=== PATIENT | female | born 1935 | race Caucasian/White ===

== ENCOUNTER 2016-11-05 03:54 | Inpatient (IN) ==
[2016-11-05] MEDS ORDERED: Acetaminophen 325 MG TABLET PO PRN (06:17)
[2016-11-05] MEDS ORDERED: Naloxone 0.4 MG/ML INJ IVP PRN (06:17)
[2016-11-05] MEDS ORDERED: 0.9 % Sodium Chloride 1,000 ML IVC SCH (06:30)
--- NOTE | 2016-11-05 06:32 | Internal Med History&Physical ---
Date of Encounter: 11/05/16 Time of Encounter: 06:23 Assessment and Plan (1) Sepsis Current visit: Yes Status: Acute Source is unknown. Influenza screen is negative. Chest x-ray reported negative for consolidation. UA, rapid strep test requested. Will obtain CT chest / abdomen, to look for source of sepsis. Pt was given IV fluid bolus and given azithromycin and ceftriazone in the ER - will broaden the antibiotic cover. Titrate the antibiotics based on the labs / imaging. Qualifiers: Sepsis type: sepsis due to unspecified organism Qualified Code(s): A41.9 - Sepsis, unspecified organism (2) Atrial fibrillation with RVR Current visit: Yes Status: Acute Possibly secondary to sepsis. She was treated with intravenous diltiazem and digoxin. will transition to oral medications. (3) CVA, old, dysphagia Current visit: Yes Status: Acute Continue modified diet (4) Chronic anticoagulation Current visit: Yes Status: Acute INR is subtherapeutic. Warfarin dosing per pharmacy (5) Fever Current visit: Yes Status: Acute Possibly due to infection. Influenza screen is negative. Chest x-ray reported negative for consolidation. UA, rapid strep test requested. Will obtain CT chest / abdomen, to look for source of infection. Qualifiers: Fever type: unspecified Qualified Code(s): R50.9 - Fever, unspecified Internal Medicine - H&P: HPI Chief complaint: Fever; Admitted From: Emergency Dept Plans for Post Hospital Care: Home History of present illness: Ms. Pinzon is a 81 year old female with h/o CVA with left sided hemineglect, dysphagia; atrial fibrillation on anticoagulation with Warfarin. She presented to the ER at [facility], with 2 day history of congestion and cough, shortness of breath and Fever at home 102 degrees. She reports some cough, but no significant expectoration. She denies facial / sinus pain, exposure to sick contacts, chest pain, abdominal pain, dysphagia, hematuria, nausea, vomiting. No vomiting or diarrhea. No chest pain. While in the emergency department, she was noted to be in atrial flutter/ fibrillation with RVR and heart rate of 150s. Her serum lactate was 3. She was given IV fluids, started on diltiazem bolus and infusion. She continued to be tachycardic but was hypotensive - hence she was given IV digoxin. Her heart rate improved. Influenza screen was negative. Chest x-ray reported no acute consolidation. He had physician emperically treated her with ceftriaxone and azithromycin. She is admitted to the hospitalist service for further w/u and management. Past Med Surg Social Fam HX - Past Medical History Medical history: atrial fibrillation, cancer, hyperlipidemia, hypertension, kidney stones Psychiatric history: no psych history - Past Surgical History Surgical History: breast surgery, cancer surgery, colectomy, orthopedic, other, ureteral stent - Social History Smoking Status: Former smoker Smokeless Tobacco Status: No Alcohol use: none Drug use: none - Family History Father Living Status: Cause of : Heart attack Hx Family Cardiac Disorders: Yes Mother Living Status: Cause of : Lung cancer Hx Family Respiratory Disorders: Yes Internal Medicine - H&P: Meds Aspirin 81 mg PO DAILY 03/31/15 [History] Diltiazem HCl [Diltiazem 24Hr Cd] 240 mg PO DAILY 03/31/15 [History] Metoprolol [Lopressor] 50 mg PO BID 03/31/15 [History] Multivitamin [Zoo Chews] 1 each PO DAILY 03/31/15 [History] Atorvastatin Calcium [Lipitor] 10 mg PO DAILY 11/05/16 [History] Coumadin 3 mg PO QMWF 11/05/16 [History] Ondansetron HCl [Zofran] 4 mg PO Q6HR 11/05/16 [History] Potassium Chloride [Klor-Con 10] 40 meq PO 11/05/16 [History] Tramadol HCl [Ultram] 50 mg PO QID PRN 11/05/16 [History] Warfarin [Coumadin] 2 mg PO QTUTHSA 11/05/16 [History] Warfarin [Coumadin] 2 mg PO QWEEK 11/05/16 [History] Allergies No Known Allergies Allergy (Verified 11/05/16 02:26) All Systems PM: A 10-system review of systems was performed and is negative for pertinent findings except as documented above in the HPI. - Constitutional Vitals: Temp Pulse Resp BP Pulse Ox 97.8 F 72 18 108/72 96 11/05/16 05:29 11/05/16 05:29 11/05/16 05:29 11/05/16 05:29 11/05/16 05:29 Exam: General: Not in acute distress at the time of my evaluation HEENT: Oral mucosa is moist. No conjunctival palor or scleral icterus Neck: No obvious neck swellings Lungs: Clear to auscultation Cardiac: irregular rhythm. No significant murmurs Abdomen: Soft, non tender. Bowel sounds present Genitourinary: No mir catheter Neurological: Alert and able to converse. Able to move extremities. Psych: Not aggressive or agitated Extremities: no significant leg edema Skin: No generalized rash Internal Med - H&P Results - Labs CBC & Chem 7: 11/05/16 06:35 11/05/16 06:35 - EKG Data -: EKG Interpreted by Myself - EKG Data EKG comments: Atrial flutter / fibrillation with RVR, heart rate of 157; infero-lateral ST depression: 11/05/16 06:32 11/05/16 08:07 - VTE Reasons for not Prescribing Prophylaxis: Not indicated-Anticoagulated or INR therapeutic
[2016-11-05 06:51] LABS: Basophils % 0.1 %; Hematocrit 45.7 % (35.3-44.9); Immature Granulocytes % 0.7 % (0-4); Lymphocytes # 0.5 K/mcL (0.6-4.6); Lymphocytes % 2.5 %; Mean Corpuscular HGB Conc 30.6 g/dL (31.6-35.5); Mean Corpuscular Hemoglobin 26.6 pg (28.0-33.3); Mean Corpuscular Volume 86.9 fL (83.0-100.0); Mean Platelet Volume 12.3 fL (9.4-12.4); Monocytes # 0.8 K/mcL (0.0-1.3); Monocytes % 3.9 %; Neutrophils # 18.8 K/mcL (1.6-8.9); Platelet Count 335 K/mcL (140-400); Red Blood Count 5.26 M/mcL (3.82-4.97); Segmented Neutrophils % 92.8 %
[2016-11-05 06:56] LABS: INR 1.5; Prothrombin Time 16.9 Seconds (9.4-12.1)
[2016-11-05 07:03] LABS: BUN/Creatinine Ratio 14 (6-26); Blood Urea Nitrogen 11 mg/dL (7-20); Calcium 8.7 mg/dL (8.6-10.8); Carbon Dioxide 23 mEq/L (19-29); Chloride 107 mEq/L (98-109); Glucose 170 mg/dL (70-99); Osmolality,Calculated 295 (280-300); Potassium 3.8 mEq/L (3.5-4.5); Sodium 141 mEq/L (136-145); eGFR For African Americans > 60 (> 60); eGFR For Non-African Americans > 60 (> 60)
[2016-11-05] MEDS ORDERED: traMADol 50 MG TABLET PO PRN (07:58)
[2016-11-05] MEDS ORDERED: Magnesium Sulfate 2 GM in D5% in Water 100 ML IVPB ONE (08:15)
[2016-11-05] MEDS: Multivit/Ca/Min/Fe/FA 1 TAB TABLET PO SCH (09:59)
[2016-11-05] MEDS: Aspirin 81 MG TAB.CHEW PO SCH (09:59)
[2016-11-05] MEDS: Diltiazem CD (24hr) 240 MG CAPSULE PO SCH (10:00)
[2016-11-05 15:11] LABS: Adenovirus Not Detected (Not Detect); Bordetella Pertussis Not Detected (Not Detect); Chlamydophila pneumoniae Not Detected (Not Detect); Coronavirus 229E ***DETECTED*** (Not Detect); Coronavirus HKU1 Not Detected (Not Detect); Coronavirus NL63 Not Detected (Not Detect); Coronavirus OC43 Not Detected (Not Detect); Human Metapneumovirus Not Detected (Not Detect); Human Rhinovirus/Enterovirus Not Detected (Not Detect); Influenza A Subtype 2009 H1 Not Detected (Not Detect); Influenza A Untypeable Not Detected (Not Detect); Influenza B Not Detected (Not Detect); Mycoplasma pneumoniae Not Detected (Not Detect); Parainfluenza Virus 1 Not Detected (Not Detect); Parainfluenza Virus 2 Not Detected (Not Detect); Parainfluenza Virus 3 Not Detected (Not Detect); Parainfluenza Virus 4 Not Detected (Not Detect); Respiratory Syncytial Virus Not Detected (Not Detect)
[2016-11-05] MEDS ORDERED: Azithromycin 500 MG in D5% in Water 250 ML IVPB SCH (17:01)
--- NOTE | 2016-11-05 17:28 | Event Note ---
Date of Encounter: 11/05/16 Time of Encounter: 17:25 Pt admitted earlier this AM with severe sepsis. CT chest shows RML/RUL pneumonia. Pt with hx of dysphagia from prior CVA. Resp panel positive for Coronavirus Plan Abx to cover aspiration Supportive care for virus Droplet isolation for virus.
[2016-11-05] MEDS: Azithromycin 500 MG in D5% in Water 250 ML IVPB SCH (17:53)
[2016-11-05] MEDS ORDERED: *HR* Warfarin 2 MG TABLET PO SCH (18:00)
[2016-11-05] MEDS ORDERED: Warfarin perPT PO PRN (18:00)
[2016-11-05 20:03] LABS: Bilirubin,Urine Negative (Negative); Blood,Urine Trace-lysed (Negative); Clarity,Urine Clear (Clear); Color,Urine Yellow (Yellow); Glucose,Urine (UA) 500 mg/dL (Normal); Ketones,Urine Trace mg/dL (Negative); Leukocyte Esterase,Urine Negative (Negative); Nitrite,Urine Negative (Negative); PH,Urine 5.5 pH Units (5.0-8.0); Protein,Urine 30 mg/dL (Neg-Trace); Specific Gravity,Urine >= 1.030 (1.010-1.025); Urobilinogen,Urine Normal (Normal)
[2016-11-05 20:16] LABS: Bacteria,Urine Few per hpf (None-Few)
[2016-11-05 20:56] LABS: Hematocrit 36.7 % (35.3-44.9); Mean Corpuscular HGB Conc 31.1 g/dL (31.6-35.5); Mean Corpuscular Hemoglobin 26.8 pg (28.0-33.3); Mean Platelet Volume 12.8 fL (9.4-12.4); Red Blood Count 4.25 M/mcL (3.82-4.97); Red Cell Distribution Width 17.1 % (11.5-14.5)
[2016-11-05 20:59] LABS: Hemoglobin 11.4 g/dL (11.5-15.4); Mean Corpuscular Volume 86.4 fL (83.0-100.0)
[2016-11-05 21:33] LABS: BUN/Creatinine Ratio 16 (6-26); Blood Urea Nitrogen 13 mg/dL (7-20); Calcium 8.4 mg/dL (8.6-10.8); Carbon Dioxide 21 mEq/L (19-29); Chloride 112 mEq/L (98-109); Glucose 182 mg/dL (70-99); Osmolality,Calculated 299 (280-300); Potassium 3.4 mEq/L (3.5-4.5); Sodium 142 mEq/L (136-145); eGFR For African Americans > 60 (> 60); eGFR For Non-African Americans > 60 (> 60)
[2016-11-06] MEDS ORDERED: Piperacillin/Tazobactam 3.375 GM in D5% in Water (Mini-Bag+) 100 ML IVPB SCH
[2016-11-06 01:42] LABS: Acinetobacter baumannii by PCR Not Detected (Not Detect); Candida albicans by PCR Not Detected (Not Detect); Candida glabrata by PCR Not Detected (Not Detect); Candida krusei by PCR Not Detected (Not Detect); Candida parapsilosis by PCR Not Detected (Not Detect); Candida tropicalis by PCR Not Detected (Not Detect); Enterococcus by PCR Not Detected (Not Detect); Escherichia coli by PCR Not Detected (Not Detect); Klebsiella oxytoca by PCR Not Detected (Not Detect); Klebsiella pneumoniae by PCR Not Detected (Not Detect); Pseudomonas aeruginosa by PCR Not Detected (Not Detect); Serratia marcescens by PCR Not Detected (Not Detect); Staphylococcus aureus by PCR Not Detected (Not Detect); Streptococcus agalactiae(B)PCR Not Detected (Not Detect); Streptococcus by PCR Not Detected (Not Detect); Streptococcus pneumoniae PCR Not Detected (Not Detect); Streptococcus pyogenes (A) PCR Not Detected (Not Detect); blaKPC Carbapenem-Resist Gene Not Detected (Not Detect); mecA Methicillin-Resist Gene Not Detected (Not Detect); vanA/B Vancomycin-Resist Genes Not Detected (Not Detect)
[2016-11-06 05:31] LABS: INR 2.1; Prothrombin Time 23.7 Seconds (9.4-12.1)
[2016-11-06 05:44] LABS: BUN/Creatinine Ratio 18 (6-26); Blood Urea Nitrogen 12 mg/dL (7-20); Calcium 8.7 mg/dL (8.6-10.8); Carbon Dioxide 18 mEq/L (19-29); Chloride 114 mEq/L (98-109); Glucose 137 mg/dL (70-99); Magnesium 1.6 mg/dL (1.6-2.6); Osmolality,Calculated 296 (280-300); Potassium 3.7 mEq/L (3.5-4.5); Sodium 142 mEq/L (136-145); eGFR For African Americans > 60 (> 60); eGFR For Non-African Americans > 60 (> 60)
[2016-11-06 06:30] LABS: Basophils % 0.1 %; Hematocrit 36.8 % (35.3-44.9); Hemoglobin 11.5 g/dL (11.5-15.4); Immature Granulocytes % 0.6 % (0-4); Immature Platelets 11.1 % (1.1-6.1); Lymphocytes % 4.5 %; Mean Corpuscular HGB Conc 31.3 g/dL (31.6-35.5); Mean Corpuscular Hemoglobin 27.4 pg (28.0-33.3); Mean Corpuscular Volume 87.6 fL (83.0-100.0); Mean Platelet Volume 12.6 fL (9.4-12.4); Monocytes # 1.3 K/mcL (0.0-1.3); Monocytes % 5.7 %; Neutrophils # 19.6 K/mcL (1.6-8.9); Platelet Count 268 K/mcL (140-400); Red Cell Distribution Width 17.2 % (11.5-14.5); Segmented Neutrophils % 89.1 %
[2016-11-06] MEDS: Ampicillin/Sulbactam 3,000 MG in 0.9 % Sodium Chloride Mini Bag 100 ML IVPB SCH ×3 (09:39→21:58)
[2016-11-06] MEDS: Aspirin 81 MG TAB.CHEW PO SCH (09:39)
[2016-11-06] MEDS: Diltiazem CD (24hr) 240 MG CAPSULE PO SCH ×2 (09:39→17:45)
[2016-11-06] MEDS: Multivit/Ca/Min/Fe/FA 1 TAB TABLET PO SCH (09:39)
--- NOTE | 2016-11-06 11:44 | Internal Med Progress Note ---
Date of Encounter: 11/06/16 Time of Encounter: 08:30 - Assessment and plan (1) Sepsis Current Visit: Yes Status: Acute Assessment and plan: Blood cx positive for H flu. Switched abx from Zosyn to Unasyn today. Continue supportive care at this time. Recheck lactate today (was still 3.4). Qualifiers: Sepsis type: Haemophilus influenzae Qualified Code(s): A41.3 - Sepsis due to Hemophilus influenzae (2) Pneumonia Current Visit: Yes Status: Acute Assessment and plan: Blood cx positive for H. influenza. Has infiltrate in RML, lower part of RUL. Sputum cx if able. Abx changed to Unasyn and azithromycin. Qualifiers: Pneumonia type: due to Haemophilus influenzae Laterality: right Lung location: middle lobe of lung Qualified Code(s): J14 - Pneumonia due to Hemophilus influenzae (3) Atrial fibrillation Current Visit: Yes Status: Acute Assessment and plan: Rate control. Continue anticoagulation. Qualifiers: Atrial fibrillation type: chronic Qualified Code(s): I48.2 - Chronic atrial fibrillation (4) Hemiparesis and other late effects of cerebrovascular accident Current Visit: Yes Status: Chronic Assessment and plan: Pt has L neglect from prior CVA. (5) Dysphagia as late effect of cerebrovascular accident (CVA) Current Visit: Yes Status: Chronic Assessment and plan: Diet adjustment. (6) Coronavirus infection Current Visit: Yes Status: Acute Assessment and plan: Positive respiratory as well. (7) Chronic anticoagulation Current Visit: Yes Status: Chronic Assessment and plan: Warfarin by pharmacy. - Subjective Interval history: Ms. Pinzon is currently admitted for acute hypoxic resp failure due to pneumonia and viral respiratory infection. She is high risk due to potential for worsening respiratory status. Ms. Pinzon is coughing quite a bit. She says she can't get secretions up. No further fever or chills. Remains on oxygen. No GI symptoms. Heart rate is up and down. Caregiver at bedside and said cough started in morning last Monday. - Constitutional Vitals: Temp Pulse Resp BP Pulse Ox 97.7 F 61 16 146/88 92 11/06/16 06:49 11/06/16 06:49 11/06/16 06:49 11/06/16 06:49 11/06/16 06:49 General appearance: Present: cachectic, pleasant, answers questions appropriately - Head Head exam: Present: normocephalic - Eye Eye exam: Present: conjuntiva pink - ENT ENT exam: Present: mucous membranes dry - Respiratory Respiratory exam: Present: rhonchi (Diffuse end exp wheeze and rhonchi heard. Decreased sounds R side.), wheezes - Cardiovascular Cardiovascular exam: Present: irregular rhythm. Absent: tachycardia - GI/Abdominal GI/Abdominal exam: Present: soft. Absent: mass, tenderness - Extremities Exam Extremities exam: Present: warm. Absent: pedal edema, tenderness - Neurological Exam Neurological exam: Present: alert, motor sensory deficit (Apparently at baseline neuro status.) - Psychiatric Psychiatric exam: Present: normal affect - Skin Skin exam: Present: warm. Absent: rash Internal Medicine: Result - Labs CBC & Chem 7: 11/06/16 06:22 11/06/16 05:04 Labs: Short CBC 11/05/16 11/06/16 Range/Units 20:37 06:22 WBC 21.0 H 22.0 H (4.3-11.1) K/mcL Hgb 11.4 L D 11.5 (11.5-15.4) g/dL Hct 36.7 36.8 (35.3-44.9) % Plt Count 276 268 (140-400) K/mcL Neutrophils # 19.6 H (1.6-8.9) K/mcL BMP 11/05/16 11/06/16 20:37 05:04 Sodium 142 142 Potassium 3.4 L 3.7 Chloride 112 H 114 H Carbon Dioxide 21 18 L BUN 13 12 Creatinine 0.83 0.65 Glucose 182 H 137 H Calcium 8.4 L 8.7 Urine 11/05/16 Range/Units 19:55 Urine Color Yellow (Yellow) Urine Clarity Clear (Clear) Urine pH 5.5 (5.0-8.0) pH Units Ur Specific [place] >= 1.030 H (1.010-1.025) Urine Protein 30 H (Neg-Trace) mg/dL Urine Glucose (UA) 500 H (Normal) mg/dL - ABG Interpretation ABG results: PT/INR, D-dimer PT 23.7 Seconds (9.4-12.1) H 11/06/16 05:04 - VTE Reasons for not Prescribing Prophylaxis: Not indicated-Anticoagulated or INR therapeutic Consult Discharge Plan - Plan Referrals: Patrice Soliz MD [Primary Care Provider] -
[2016-11-06] MEDS ORDERED: 0.9 % Sodium Chloride 1,000 ML IVC SCH (12:08)
[2016-11-06] MEDS: Azithromycin 500 MG in D5% in Water 250 ML IVPB SCH (17:28)
[2016-11-06] MEDS ORDERED: *HR* Warfarin 1 MG TABLET PO SCH (18:00)
[2016-11-07] MEDS: Ipratropium/Albuterol Neb 3 ML IH PRN (01:32)
[2016-11-07] MEDS ORDERED: *HR* Metoprolol 5 MG/5 ML VIAL IVP ONE ×2 (01:56→02:06)
[2016-11-07 02:34] LABS: ABG Base Excess -2.2 mEq/L (-2.0 to 3.0); ABG HCO3 25.7 mEQ/L (21-27); ABG Oxygen Saturation 96 % (95-98); ABG PCO2 56 mmHg (35-45); ABG PH 7.27 pH Units (7.32-7.45); ABG PO2 89 mmHg (85-104); ABG TCO2 27.4 mEq/L (20-26); Blood Gas FiO2 50 %
[2016-11-07] MEDS: Ampicillin/Sulbactam 3,000 MG in 0.9 % Sodium Chloride Mini Bag 100 ML IVPB SCH (02:35)
[2016-11-07 04:02] LABS: INR 1.9
[2016-11-07] MEDS: Levalbuterol Neb 1.25 MG/3 ML IH SCH ×4 (04:09→21:01)
[2016-11-07 04:25] LABS: Basophils % 0.2 %; Hematocrit 40.2 % (35.3-44.9); Hemoglobin 12.7 g/dL (11.5-15.4); Immature Granulocytes % 1.4 % (0-4); Immature Platelets 12.2 % (1.1-6.1); Lymphocytes # 0.4 K/mcL (0.6-4.6); Lymphocytes % 1.9 %; Mean Corpuscular HGB Conc 31.6 g/dL (31.6-35.5); Mean Corpuscular Hemoglobin 27.6 pg (28.0-33.3); Mean Corpuscular Volume 87.4 fL (83.0-100.0); Mean Platelet Volume 13.7 fL (9.4-12.4); Monocytes # 2.3 K/mcL (0.0-1.3); Monocytes % 9.7 %; Neutrophils # 20.3 K/mcL (1.6-8.9); Platelet Count 294 K/mcL (140-400); Red Cell Distribution Width 17.4 % (11.5-14.5); Segmented Neutrophils % 86.8 %
[2016-11-07 04:30] LABS: Alanine Aminotransferase 27 Units/L (0-55); Albumin 2.6 g/dL (3.5-5.0); Albumin/Globulin Ratio 0.7 (1.1-2.2); Alkaline Phosphatase 114 Units/L (38-126); Aspartate Amino Transferase 16 Units/L (5-34); BUN/Creatinine Ratio 15 (6-26); Bilirubin,Total 0.5 mg/dL (0.2-1.2); Blood Urea Nitrogen 11 mg/dL (7-20); C-Reactive Protein 85 mg/L (Less than 5); Calcium 8.8 mg/dL (8.6-10.8); Carbon Dioxide 22 mEq/L (19-29); Chloride 113 mEq/L (98-109); Globulin 3.9 g/dL (2.4-3.5); Glucose 121 mg/dL (70-99); Magnesium 1.6 mg/dL (1.6-2.6); Osmolality,Calculated 303 (280-300); Potassium 3.5 mEq/L (3.5-4.5); Sodium 146 mEq/L (136-145); Total Protein 6.5 g/dL (6.0-8.3); eGFR For African Americans > 60 (> 60); eGFR For Non-African Americans > 60 (> 60)
[2016-11-07] MEDS ORDERED: Vancomycin 750 MG in D5% in Water 250 ML IVPB SCH (04:36)
--- NOTE | 2016-11-07 04:40 | Event Note ---
Date of Encounter: 11/07/16 Time of Encounter: 02:00 I was paged by nurse Nina at 0116 for patient having labored breathing with expiratory wheezes and O2 sat drop despite of increase of oxygen. VS: T97.5, HR 91, BP 169/88, RR 36 and O2 sat 88% on 5L. Duoneb was ordered and given to patient. At 0147, I was paged again by nurse Nina again for A-fib with HR in the 150-160s, RR 32, O2 sat 93% on 8L. Upon my exam, patient has significant labored breathing using her abdominal muscles. Lung auscultation revealed diminished breath sounds. Heart sounds tachycardia with irregular rhythm. Bedside monitor showed A-fib RVR with rate of 150s. BiPAP and ABG were ordered for her significant respiratory distress and bronchodilator was switched to Xopenex. One dose of Lopressor 5 mg IV push was given. Per nurse, patient didn' t get her home dose Cardizem CD earlier due to swallow difficulty. According to patient helper at bedside, patient is actually breaking the capsule of Cardizem CD at home so she can take it orally. Patient still had persistent A-fib at rate ranging 120s - 140s so eventually Cardizem was started. Portable CXR stat was obtained and showed increased right lower lobe consolidation with persistent right upper lobe consolidation. Case was discussed with Dr. Flood. Given patient's worsening leukocytosis despite of antibiotics, we feel it's more likely pneumonia not responding to current antibiotic regimen rather than new aspiration pneumonia. Antibiotics are changed to IV vancomycin and Zosyn. Speech therapy is also consulted for patient's dysphagia problem.
[2016-11-07] MEDS ORDERED: Vancomycin 750 MG in D5% in Water 250 ML IVPB ONE (05:00)
[2016-11-07] MEDS: Piperacillin/Tazobactam 3.375 GM in D5% in Water (Mini-Bag+) 100 ML IVPB SCH ×2 (06:19→18:58)
[2016-11-07] MEDS: Multivit/Ca/Min/Fe/FA 1 TAB TABLET PO SCH (10:02)
[2016-11-07] MEDS: dilTIAZem HCl 60 MG TABLET PO SCH ×4 (10:03→21:40)
[2016-11-07] MEDS: Aspirin 81 MG TAB.CHEW PO SCH (10:04)
[2016-11-07] MEDS ORDERED: GuaiFENesin Liq 200 MG/10 ML UDC PO PRN (13:30)
[2016-11-07] MEDS ORDERED: traMADol 50 MG TABLET PO PRN (13:31)
[2016-11-07] MEDS ORDERED: *HR* Warfarin 3 MG TABLET PO SCH (18:00)
[2016-11-07] MEDS ORDERED: *HR* Warfarin 3 MG TABLET PO ONE (18:00)
--- NOTE | 2016-11-07 18:31 | Internal Med Progress Note ---
Date of Encounter: 11/07/16 Time of Encounter: 16:30 - Assessment and plan (1) Sepsis Current Visit: Yes Status: Acute Assessment and plan: On Zosyn at this time. Still with significant coughing. Sensitivity of blood cx not back yet. Will repeat blood cx in AM. Qualifiers: Sepsis type: Haemophilus influenzae Qualified Code(s): A41.3 - Sepsis due to Hemophilus influenzae (2) Pneumonia Current Visit: Yes Status: Acute Assessment and plan: Significant infiltrate on CXR. ? if component of aspiration. May need bronchoscopy if does not improve. Qualifiers: Pneumonia type: due to Haemophilus influenzae Laterality: right Lung location: middle lobe of lung Qualified Code(s): J14 - Pneumonia due to Hemophilus influenzae (3) Atrial fibrillation Current Visit: Yes Status: Acute Assessment and plan: Rate better controlled. Continue current meds. Qualifiers: Atrial fibrillation type: chronic Qualified Code(s): I48.2 - Chronic atrial fibrillation (4) Hemiparesis and other late effects of cerebrovascular accident Current Visit: Yes Status: Chronic Assessment and plan: Pt has L neglect from prior CVA. (5) Dysphagia as late effect of cerebrovascular accident (CVA) Current Visit: Yes Status: Chronic Assessment and plan: Diet adjustment. (6) Coronavirus infection Current Visit: Yes Status: Acute Assessment and plan: Droplet isolation. (7) Chronic anticoagulation Current Visit: Yes Status: Chronic Assessment and plan: Warfarin by pharmacy. - Subjective Interval history: Ms. Pinzon is currently admitted for acute hypoxic resp failure due to pneumonia and viral respiratory infection. She is high risk due to potential for worsening respiratory status. Ms. Pinzon is doing OK at this time. She had rapid a fib last night and was started on cardizem drip. She is now on PO. Denies CP. Still coughing up a lot of secretions. No blood. No fever or chills but WBC still elevated. - Constitutional Vitals: Temp Pulse Resp BP Pulse Ox 98.3 F 88 16 109/61 93 11/07/16 15:00 11/07/16 15:00 11/07/16 15:25 11/07/16 15:25 11/07/16 15:25 General appearance: Present: cachectic, pleasant, answers questions appropriately - Head Head exam: Present: normocephalic - Eye Eye exam: Present: EOMI, conjuntiva pink - ENT ENT exam: Present: mucous membranes moist - Respiratory Respiratory exam: Present: rales (Significant secretions - greenish.), rhonchi - Cardiovascular Cardiovascular exam: Present: irregular rhythm. Absent: tachycardia - GI/Abdominal GI/Abdominal exam: Present: soft. Absent: tenderness - Extremities Exam Extremities exam: Present: warm. Absent: tenderness - Neurological Exam Neurological exam: Present: alert, oriented X3 - Skin Skin exam: Present: dry, warm. Absent: rash Internal Medicine: Result - Labs CBC & Chem 7: 11/07/16 03:21 11/07/16 03:17 Labs: Short CBC 11/07/16 Range/Units 03:21 WBC 23.4 H (4.3-11.1) K/mcL Hgb 12.7 (11.5-15.4) g/dL Hct 40.2 (35.3-44.9) % Plt Count 294 (140-400) K/mcL Neutrophils # 20.3 H (1.6-8.9) K/mcL BMP 11/07/16 03:17 Sodium 146 H Potassium 3.5 Chloride 113 H Carbon Dioxide 22 BUN 11 Creatinine 0.72 Glucose 121 H Calcium 8.8 Liver Function 11/07/16 Range/Units 03:17 Total Bilirubin 0.5 (0.2-1.2) mg/dL AST 16 (5-34) Units/L ALT 27 (0-55) Units/L Alkaline Phosphatase 114 (38-126) Units/L Albumin 2.6 L (3.5-5.0) g/dL - ABG Interpretation ABG results: ABG ABG pH 7.27 pH Units (7.32-7.45) L 11/07/16 02:18 ABG pCO2 56 mmHg (35-45) H 11/07/16 02:18 ABG pO2 89 mmHg (85-104) 11/07/16 02:18 ABG O2 Saturation 96 % (95-98) 11/07/16 02:18 PT/INR, D-dimer PT 21.0 Seconds (9.4-12.1) H 11/07/16 03:17 - Impressions Impressions Chest X-Ray 11/07/16 02:06 IMPRESSION: 1. Worsening right lower lobe consolidation compared to exam of November 05, 2016. 2. Persistent right upper lobe consolidation. 3. Small bilateral pleural effusions. D/ / Dong Martinez MD / Dong Martinez MD Interpreting Provider: Dong Martinez MD - VTE Reasons for not Prescribing Prophylaxis: Not indicated-Anticoagulated or INR therapeutic Consult Discharge Plan - Plan Referrals: Patrice Soliz MD [Primary Care Provider] -
[2016-11-08] MEDS: Piperacillin/Tazobactam 3.375 GM in D5% in Water (Mini-Bag+) 100 ML IVPB SCH ×3 (00:20→16:40)
[2016-11-08] MEDS ORDERED: Piperacillin/Tazobactam 3.375 GM in D5% in Water (Mini-Bag+) 100 ML IVPB SCH (01:00)
[2016-11-08] MEDS: Levalbuterol Neb 1.25 MG/3 ML IH SCH ×4 (04:46→22:14)
[2016-11-08 05:21] LABS: INR 2.1; Prothrombin Time 23.5 Seconds (9.4-12.1)
[2016-11-08 05:32] LABS: BUN/Creatinine Ratio 12 (6-26); Blood Urea Nitrogen 7 mg/dL (7-20); Calcium 8.2 mg/dL (8.6-10.8); Carbon Dioxide 28 mEq/L (19-29); Chloride 110 mEq/L (98-109); Glucose 103 mg/dL (70-99); Magnesium 1.5 mg/dL (1.6-2.6); Osmolality,Calculated 294 (280-300); Sodium 143 mEq/L (136-145); eGFR For African Americans > 60 (> 60); eGFR For Non-African Americans > 60 (> 60)
[2016-11-08 05:35] LABS: Potassium 2.5 mEq/L (3.5-4.5)
[2016-11-08] MEDS ORDERED: Magnesium Sulfate 2 GM in D5% in Water 100 ML IVPB ONE (05:58)
[2016-11-08 06:28] LABS: Hematocrit 35.3 % (35.3-44.9); Hemoglobin 10.8 g/dL (11.5-15.4); Immature Platelets 12.6 % (1.1-6.1); Mean Corpuscular HGB Conc 30.6 g/dL (31.6-35.5); Mean Corpuscular Hemoglobin 26.3 pg (28.0-33.3); Mean Corpuscular Volume 85.9 fL (83.0-100.0); Red Blood Count 4.11 M/mcL (3.82-4.97); Red Cell Distribution Width 17.2 % (11.5-14.5)
[2016-11-08 06:38] LABS: BUN/Creatinine Ratio 12 (6-26); Blood Urea Nitrogen 7 mg/dL (7-20); Calcium 8.1 mg/dL (8.6-10.8); Carbon Dioxide 24 mEq/L (19-29); Chloride 112 mEq/L (98-109); Glucose 99 mg/dL (70-99); Osmolality,Calculated 296 (280-300); Potassium 2.9 mEq/L (3.5-4.5); Sodium 144 mEq/L (136-145); eGFR For African Americans > 60 (> 60); eGFR For Non-African Americans > 60 (> 60)
[2016-11-08] MEDS: Vancomycin 750 MG in D5% in Water 250 ML IVPB SCH (06:41)
--- NOTE | 2016-11-08 08:22 | Internal Med Progress Note ---
Date of Encounter: 11/08/16 Time of Encounter: 08:18 - Assessment and plan (1) Sepsis Current Visit: Yes Status: Acute Assessment and plan: Sepsis: Likely source lung. Patient has a H influenza positive. Possibility of underlying/superadded infection. Patient is presently on Zosyn: Day 2. Noted that patient's white blood cell count is trending down. Patient is clinically stable. Does not use accessory muscles of respiration. Plan: Will continue Zosyn at this time. Will continue medication for H. influenzae. Qualifiers: Sepsis type: Haemophilus influenzae Qualified Code(s): A41.3 - Sepsis due to Hemophilus influenzae (2) Pneumonia Current Visit: Yes Status: Acute Assessment and plan: Pneumonia: Likely secondary to H. influenzae. Component of aspiration cannot be ruled out. Plan: Will continue present treatment at this point. Total duration of antibiotics should be 7-10 days. This should include both intravenous/oral. Qualifiers: Pneumonia type: due to Haemophilus influenzae Laterality: right Lung location: middle lobe of lung Qualified Code(s): J14 - Pneumonia due to Hemophilus influenzae (3) Atrial fibrillation Current Visit: Yes Status: Acute Assessment and plan: Patient is known to have atrial fibrillation. On Cardizem 60 mg 4 times a day. On beta jim 50 mg twice a day. Heart rate is well-controlled. Anticoagulation: Warfarin. INR: 2.1 Plan: Will discontinue intravenous Cardizem. We will resume her extended dose of Cardizem tomorrow. Qualifiers: Atrial fibrillation type: chronic Qualified Code(s): I48.2 - Chronic atrial fibrillation (4) Dysphagia as late effect of cerebrovascular accident (CVA) Current Visit: Yes Status: Chronic Assessment and plan: Diet adjustment. (5) Coronavirus infection Current Visit: Yes Status: Acute Assessment and plan: Droplet isolation. (6) DVT prophylaxis Current Visit: Yes Status: Acute Assessment and plan: Coumadin Medical decision making: This patient has a moderate to severe risk of worsening respiratory status in spite of being on appropriate medication. - Subjective Interval history: Patient seen and examined. Chart reviewed. Patient is comfortably lying in bed. She denies chest pain, shortness of breath, dizziness or abdominal pain. Patient's caregiver is at bedside and patient prefers to communicate with the caregiver. - Constitutional Vitals: Temp Pulse Resp BP Pulse Ox 98.7 F 77 16 142/71 93 11/08/16 07:58 11/08/16 07:58 11/08/16 07:58 11/08/16 07:58 11/08/16 07:58 General appearance: Present: cachectic, pleasant, answers questions appropriately - Head Head exam: Present: atraumatic, normocephalic - Eye Eye exam: Present: PERRL, conjuntiva pink, sclera anicteric Pupils: Present: PERRL - Neck Neck exam general surgery: Present: supple, trachea midline. Absent: lymphadenopathy - Respiratory Respiratory exam: Present: CTAB. Absent: accessory muscle use, rales, rhonchi, wheezes - Cardiovascular Cardiovascular exam: Present: RRR, +S1, +S2. Absent: diastolic murmur, gallop, rubs, systolic murmur - GI/Abdominal GI/Abdominal exam: Present: normal bowel sounds, soft, no peritoneal signs. Absent: distended, tenderness - Extremities Exam Extremities exam: Present: warm, radial pulses palpable and symetrical. Absent : calf tenderness, cyanotic, pedal edema - Neurological Exam Neurological exam: Present: CN II-XII intact, oriented X3, no focal deficits. Absent: pronater drift, facial droop, speech deficit - Skin Skin exam: Present: dry, intact Internal Medicine: Result - Labs CBC & Chem 7: 11/08/16 06:18 11/08/16 06:18 Labs: Short CBC 11/08/16 Range/Units 06:18 WBC 10.5 D (4.3-11.1) K/mcL Hgb 10.8 L D (11.5-15.4) g/dL Hct 35.3 (35.3-44.9) % Plt Count 248 (140-400) K/mcL BMP 11/08/16 11/08/16 04:40 06:18 Sodium 143 144 Potassium 2.5 L* D 2.9 L Chloride 110 H 112 H Carbon Dioxide 28 24 BUN 7 7 Creatinine 0.59 0.57 Glucose 103 H 99 Calcium 8.2 L 8.1 L - ABG Interpretation ABG results: ABG ABG pH 7.27 pH Units (7.32-7.45) L 11/07/16 02:18 ABG pCO2 56 mmHg (35-45) H 11/07/16 02:18 ABG pO2 89 mmHg (85-104) 11/07/16 02:18 ABG O2 Saturation 96 % (95-98) 11/07/16 02:18 PT/INR, D-dimer PT 23.5 Seconds (9.4-12.1) H 11/08/16 04:40 - VTE Reasons for not Prescribing Prophylaxis: Not indicated-Anticoagulated or INR therapeutic Consult Discharge Plan - Plan Referrals: Patrice Soliz MD [Primary Care Provider] -
[2016-11-08] MEDS: dilTIAZem HCl 60 MG TABLET PO SCH ×5 (10:19→21:30)
[2016-11-08] MEDS: Aspirin 81 MG TAB.CHEW PO SCH (10:19)
[2016-11-08] MEDS: Multivit/Ca/Min/Fe/FA 1 TAB TABLET PO SCH (10:20)
[2016-11-08] MEDS: Ciprofloxacin OPTH Soln 2.5 ML BOTTLE LEFT EYE SCH ×3 (12:24→21:31)
[2016-11-08] MEDS ORDERED: Potassium Chloride Elixir 20 MEQ/15 ML UDC PO ONE (15:39)
[2016-11-08] MEDS ORDERED: *HR* Warfarin 3 MG TABLET PO SCH (18:00)
[2016-11-09] MEDS: Piperacillin/Tazobactam 3.375 GM in D5% in Water (Mini-Bag+) 100 ML IVPB SCH ×3 (01:13→17:22)
[2016-11-09] MEDS: Ciprofloxacin OPTH Soln 2.5 ML BOTTLE LEFT EYE SCH ×6 (01:13→21:00)
[2016-11-09] MEDS: Levalbuterol Neb 1.25 MG/3 ML IH SCH ×2 (04:55→10:42)
[2016-11-09 05:12] LABS: Basophils % 0.2 %; Eosinophils # 0.2 K/mcL (0.0-0.6); Eosinophils % 2.1 %; Hematocrit 37.7 % (35.3-44.9); Hemoglobin 11.6 g/dL (11.5-15.4); Immature Granulocytes % 0.6 % (0-4); Lymphocytes # 1.2 K/mcL (0.6-4.6); Lymphocytes % 10.9 %; Mean Corpuscular HGB Conc 30.8 g/dL (31.6-35.5); Mean Corpuscular Hemoglobin 26.4 pg (28.0-33.3); Mean Corpuscular Volume 85.7 fL (83.0-100.0); Mean Platelet Volume 12.7 fL (9.4-12.4); Monocytes # 0.9 K/mcL (0.0-1.3); Monocytes % 8.2 %; Neutrophils # 8.3 K/mcL (1.6-8.9); Platelet Count 299 K/mcL (140-400); Red Cell Distribution Width 17.2 % (11.5-14.5)
[2016-11-09 05:17] LABS: INR 2.7; Prothrombin Time 29.8 Seconds (9.4-12.1)
[2016-11-09 05:42] LABS: Alanine Aminotransferase 12 Units/L (0-55); Albumin/Globulin Ratio 0.5 (1.1-2.2); Alkaline Phosphatase 87 Units/L (38-126); Aspartate Amino Transferase 10 Units/L (5-34); BUN/Creatinine Ratio 11 (6-26); Blood Urea Nitrogen 7 mg/dL (7-20); Calcium 8.3 mg/dL (8.6-10.8); Carbon Dioxide 30 mEq/L (19-29); Chloride 106 mEq/L (98-109); Globulin 3.8 g/dL (2.4-3.5); Glucose 114 mg/dL (70-99); Osmolality,Calculated 295 (280-300); Potassium 2.6 mEq/L (3.5-4.5); Sodium 143 mEq/L (136-145); Total Protein 5.8 g/dL (6.0-8.3); eGFR For African Americans > 60 (> 60); eGFR For Non-African Americans > 60 (> 60)
[2016-11-09 05:43] LABS: Bilirubin,Total 1.1 mg/dL (0.2-1.2)
[2016-11-09] MEDS: Vancomycin 750 MG in D5% in Water 250 ML IVPB SCH (06:47)
[2016-11-09] MEDS: Aspirin 81 MG TAB.CHEW PO SCH (09:10)
[2016-11-09] MEDS: dilTIAZem HCl 60 MG TABLET PO SCH ×4 (09:11→21:00)
[2016-11-09] MEDS: Multivit/Ca/Min/Fe/FA 1 TAB TABLET PO SCH (09:11)
--- NOTE | 2016-11-09 09:45 | Internal Med Progress Note ---
Date of Encounter: 11/09/16 Time of Encounter: 09:43 - Assessment and plan (1) Sepsis Current Visit: Yes Status: Acute Assessment and plan: Sepsis: Likely source lung. Patient has a H influenza positive. Possibility of underlying/superadded infection. Patient is presently on Zosyn: Day 2. Noted that patient's white blood cell count is trending down. Patient is clinically stable. Does not use accessory muscles of respiration. Plan: Will continue Zosyn at this time. Will continue medication for H. influenzae. 11/09/2016 Sepsis: Likely source lung/pneumonia Today is day 3 of Zosyn. Compared to yesterday a lot of clinical improvement has been noticed. Noted that white count is within acceptable range. Patient denies cough/shortness of breath/chest pain. Noted that patient's potassium is 2.6 Plan We will continue Zosyn at this time. Possible home tomorrow We will replace potassium intravenously. Qualifiers: Sepsis type: Haemophilus influenzae Qualified Code(s): A41.3 - Sepsis due to Hemophilus influenzae (2) Pneumonia Current Visit: Yes Status: Acute Assessment and plan: Pneumonia: Likely secondary to H. influenzae. Component of aspiration cannot be ruled out. Plan: Will continue present treatment at this point. Total duration of antibiotics should be 7-10 days. This should include both intravenous/oral. Qualifiers: Pneumonia type: due to Haemophilus influenzae Laterality: right Lung location: middle lobe of lung Qualified Code(s): J14 - Pneumonia due to Hemophilus influenzae (3) Atrial fibrillation Current Visit: Yes Status: Acute Assessment and plan: Patient is known to have atrial fibrillation. On Cardizem 60 mg 4 times a day. On beta jim 50 mg twice a day. Heart rate is well-controlled. Anticoagulation: Warfarin. INR: 2.1 Plan: Will discontinue intravenous Cardizem. We will resume her extended dose of Cardizem tomorrow. 11/10/2016 We will start today Cardizem extended release 240 mg. will continue same management. Qualifiers: Atrial fibrillation type: chronic Qualified Code(s): I48.2 - Chronic atrial fibrillation (4) Dysphagia as late effect of cerebrovascular accident (CVA) Current Visit: Yes Status: Chronic Assessment and plan: Diet adjustment. (5) Coronavirus infection Current Visit: Yes Status: Acute Assessment and plan: Droplet isolation. (6) DVT prophylaxis Current Visit: Yes Status: Acute Assessment and plan: Coumadin Medical decision making: This patient has a moderate to severe risk of worsening respiratory status in spite of being on appropriate medication. - Subjective Interval history: Patient seen and examined. Chart reviewed. Patient is comfortably lying in bed. She denies chest pain, shortness of breath, dizziness or abdominal pain. Patient's caregiver is at bedside and patient prefers to communicate with the caregiver. 11/09/2016 Patient seen and examined. Chart review. Patient is sitting up in the bed. Patient claims that compared yesterday she feels much better today. Patient thinks that she can probably go home tomorrow. - Constitutional Vitals: Temp Pulse Resp BP Pulse Ox 97.6 F 87 16 128/88 96 11/09/16 07:21 11/09/16 07:21 11/09/16 07:21 11/09/16 07:21 11/09/16 07:21 General appearance: Present: cachectic, pleasant, answers questions appropriately - Head Head exam: Present: atraumatic, normocephalic - Eye Eye exam: Present: PERRL, conjuntiva pink, sclera anicteric Pupils: Present: PERRL - Neck Neck exam general surgery: Present: supple, trachea midline. Absent: lymphadenopathy - Respiratory Respiratory exam: Present: CTAB. Absent: accessory muscle use, rales, rhonchi, wheezes - Cardiovascular Cardiovascular exam: Present: RRR, +S1, +S2. Absent: diastolic murmur, gallop, rubs, systolic murmur - GI/Abdominal GI/Abdominal exam: Present: normal bowel sounds, soft, no peritoneal signs. Absent: distended, tenderness - Extremities Exam Extremities exam: Present: warm, radial pulses palpable and symetrical. Absent : calf tenderness, cyanotic, pedal edema - Neurological Exam Neurological exam: Present: CN II-XII intact, oriented X3, no focal deficits. Absent: pronater drift, facial droop, speech deficit - Skin Skin exam: Present: dry, intact Internal Medicine: Result - Labs CBC & Chem 7: 11/09/16 04:54 11/09/16 04:54 Labs: Short CBC 11/09/16 Range/Units 04:54 WBC 10.6 (4.3-11.1) K/mcL Hgb 11.6 (11.5-15.4) g/dL Hct 37.7 (35.3-44.9) % Plt Count 299 (140-400) K/mcL Neutrophils # 8.3 (1.6-8.9) K/mcL BMP 11/09/16 04:54 Sodium 143 Potassium 2.6 L Chloride 106 Carbon Dioxide 30 H BUN 7 Creatinine 0.65 Glucose 114 H Calcium 8.3 L Liver Function 11/09/16 Range/Units 04:54 Total Bilirubin 1.1 D (0.2-1.2) mg/dL AST 10 (5-34) Units/L ALT 12 (0-55) Units/L Alkaline Phosphatase 87 (38-126) Units/L Albumin 2.0 L D (3.5-5.0) g/dL - ABG Interpretation ABG results: ABG ABG pH 7.27 pH Units (7.32-7.45) L 11/07/16 02:18 ABG pCO2 56 mmHg (35-45) H 11/07/16 02:18 ABG pO2 89 mmHg (85-104) 11/07/16 02:18 ABG O2 Saturation 96 % (95-98) 11/07/16 02:18 PT/INR, D-dimer PT 29.8 Seconds (9.4-12.1) H 11/09/16 04:54 - VTE Reasons for not Prescribing Prophylaxis: Not indicated-Anticoagulated or INR therapeutic Consult Discharge Plan - Plan Referrals: Patrice Soliz MD [Primary Care Provider] -
[2016-11-09] MEDS ORDERED: Diltiazem CD (24hr) 240 MG CAPSULE PO SCH (10:00)
[2016-11-09] MEDS ORDERED: Vancomycin 1,000 MG in D5% in Water 250 ML IVPB SCH (11:00)
[2016-11-09] MEDS ORDERED: Magnesium Sulfate 2 GM in D5% in Water 100 ML IVPB ONE (11:36)
[2016-11-09] MEDS ORDERED: Aminoglycoside Consult 1 EACH MC ONE (13:24)
[2016-11-09] MEDS ORDERED: *HR* Warfarin 1 MG TABLET PO ONE (18:00)
--- NOTE | 2016-11-09 18:07 | Electrocardiograph Report ---
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
[2016-11-09] MEDS: Ipratropium/Albuterol Neb 3 ML IH PRN (18:41)
[2016-11-10] MEDS: Piperacillin/Tazobactam 3.375 GM in D5% in Water (Mini-Bag+) 100 ML IVPB SCH ×3 (00:47→17:26)
[2016-11-10] MEDS: Ciprofloxacin OPTH Soln 2.5 ML BOTTLE LEFT EYE SCH ×6 (00:51→21:21)
[2016-11-10 05:00] LABS: INR 3.2; Prothrombin Time 35.2 Seconds (9.4-12.1)
[2016-11-10 05:02] LABS: Basophils % 0.2 %; Eosinophils # 0.5 K/mcL (0.0-0.6); Eosinophils % 5.3 %; Hemoglobin 10.3 g/dL (11.5-15.4); Immature Granulocytes % 0.4 % (0-4); Lymphocytes # 1.1 K/mcL (0.6-4.6); Lymphocytes % 11.7 %; Mean Corpuscular HGB Conc 31.2 g/dL (31.6-35.5); Mean Corpuscular Hemoglobin 26.8 pg (28.0-33.3); Mean Corpuscular Volume 85.7 fL (83.0-100.0); Mean Platelet Volume 12.8 fL (9.4-12.4); Monocytes # 0.9 K/mcL (0.0-1.3); Monocytes % 9.5 %; Neutrophils # 6.6 K/mcL (1.6-8.9); Platelet Count 278 K/mcL (140-400); Red Blood Count 3.85 M/mcL (3.82-4.97); Segmented Neutrophils % 72.9 %
[2016-11-10 05:19] LABS: Alanine Aminotransferase 9 Units/L (0-55); Albumin/Globulin Ratio 0.5 (1.1-2.2); Alkaline Phosphatase 81 Units/L (38-126); Aspartate Amino Transferase 10 Units/L (5-34); BUN/Creatinine Ratio 10 (6-26); Bilirubin,Total 0.9 mg/dL (0.2-1.2); Blood Urea Nitrogen 6 mg/dL (7-20); Calcium 7.9 mg/dL (8.6-10.8); Carbon Dioxide 30 mEq/L (19-29); Chloride 107 mEq/L (98-109); Globulin 3.3 g/dL (2.4-3.5); Glucose 89 mg/dL (70-99); Osmolality,Calculated 295 (280-300); Potassium 2.6 mEq/L (3.5-4.5); Sodium 144 mEq/L (136-145); Total Protein 5.1 g/dL (6.0-8.3); eGFR For African Americans > 60 (> 60); eGFR For Non-African Americans > 60 (> 60)
[2016-11-10 05:22] LABS: Albumin 1.8 g/dL (3.5-5.0)
[2016-11-10 06:14] LABS: Magnesium 1.7 mg/dL (1.6-2.6)
[2016-11-10] MEDS: dilTIAZem HCl 60 MG TABLET PO SCH ×4 (08:35→21:21)
[2016-11-10] MEDS: Aspirin 81 MG TAB.CHEW PO SCH (08:35)
[2016-11-10] MEDS: Multivit/Ca/Min/Fe/FA 1 TAB TABLET PO SCH (08:35)
--- NOTE | 2016-11-10 12:34 | Internal Med Progress Note ---
Date of Encounter: 11/10/16 Time of Encounter: 12:31 - Assessment and plan (1) Sepsis Current Visit: Yes Status: Acute Assessment and plan: Sepsis: Likely source lung. Patient has a H influenza positive. Possibility of underlying/superadded infection. Patient is presently on Zosyn: Day 2. Noted that patient's white blood cell count is trending down. Patient is clinically stable. Does not use accessory muscles of respiration. Plan: Will continue Zosyn at this time. Will continue medication for H. influenzae. 11/09/2016 Sepsis: Likely source lung/pneumonia Today is day 3 of Zosyn. Compared to yesterday a lot of clinical improvement has been noticed. Noted that white count is within acceptable range. Patient denies cough/shortness of breath/chest pain. Noted that patient's potassium is 2.6 Plan We will continue Zosyn at this time. Possible home tomorrow We will replace potassium intravenously. 11/10/2016 Sepsis: Likely source lung/pneumonia Today is day 4 of Zosyn. Patient is comparatively much better. Noted that patient's potassium is 2.6 again in spite of replacement. Patient's magnesium is 1.7. Plan: We will continue replacing potassium. If tomorrow potassium is persistently low then we might get opinion from a renal. Qualifiers: Sepsis type: Haemophilus influenzae Qualified Code(s): A41.3 - Sepsis due to Hemophilus influenzae (2) Pneumonia Current Visit: Yes Status: Acute Assessment and plan: Pneumonia: Likely secondary to H. influenzae. Component of aspiration cannot be ruled out. Plan: Will continue present treatment at this point. Total duration of antibiotics should be 7-10 days. This should include both intravenous/oral. Qualifiers: Pneumonia type: due to Haemophilus influenzae Laterality: right Lung location: middle lobe of lung Qualified Code(s): J14 - Pneumonia due to Hemophilus influenzae (3) Atrial fibrillation Current Visit: Yes Status: Acute Assessment and plan: Patient is known to have atrial fibrillation. On Cardizem 60 mg 4 times a day. On beta jim 50 mg twice a day. Heart rate is well-controlled. Anticoagulation: Warfarin. INR: 2.1 Plan: Will discontinue intravenous Cardizem. We will resume her extended dose of Cardizem tomorrow. 11/10/2016 We will start today Cardizem extended release 240 mg. will continue same management. Qualifiers: Atrial fibrillation type: chronic Qualified Code(s): I48.2 - Chronic atrial fibrillation (4) Dysphagia as late effect of cerebrovascular accident (CVA) Current Visit: Yes Status: Chronic Assessment and plan: Diet adjustment. (5) Coronavirus infection Current Visit: Yes Status: Acute Assessment and plan: Droplet isolation. (6) DVT prophylaxis Current Visit: Yes Status: Acute Assessment and plan: Coumadin Medical decision making: This patient has a moderate to severe risk of worsening respiratory status in spite of being on appropriate medication. - Subjective Interval history: Patient seen and examined. Chart reviewed. Patient is comfortably lying in bed. She denies chest pain, shortness of breath, dizziness or abdominal pain. Patient's caregiver is at bedside and patient prefers to communicate with the caregiver. 11/09/2016 Patient seen and examined. Chart review. Patient is sitting up in the bed. Patient claims that compared yesterday she feels much better today. Patient thinks that she can probably go home tomorrow. 11/10/2016 Patient seen and examined. Chart reviewed. Patient is keen to go home. Noted that patient's potassium is 2.6. Explained patient that possible home tomorrow. - Constitutional Vitals: Temp Pulse Resp BP Pulse Ox 98.2 F 80 16 142/73 97 11/10/16 11:13 11/10/16 11:13 11/10/16 11:13 11/10/16 11:13 11/10/16 11:13 General appearance: Present: cachectic, pleasant, answers questions appropriately - Head Head exam: Present: atraumatic, normocephalic - Eye Eye exam: Present: PERRL, conjuntiva pink, sclera anicteric Pupils: Present: PERRL - Neck Neck exam general surgery: Present: supple, trachea midline. Absent: lymphadenopathy - Respiratory Respiratory exam: Present: CTAB. Absent: accessory muscle use, rales, rhonchi, wheezes - Cardiovascular Cardiovascular exam: Present: RRR, +S1, +S2. Absent: diastolic murmur, gallop, rubs, systolic murmur - GI/Abdominal GI/Abdominal exam: Present: normal bowel sounds, soft, no peritoneal signs. Absent: distended, tenderness - Extremities Exam Extremities exam: Present: warm, radial pulses palpable and symetrical. Absent : calf tenderness, cyanotic, pedal edema - Neurological Exam Neurological exam: Present: CN II-XII intact, oriented X3, no focal deficits. Absent: pronater drift, facial droop, speech deficit - Skin Skin exam: Present: dry, intact Internal Medicine: Result - Labs CBC & Chem 7: 11/10/16 04:14 11/10/16 04:14 Labs: Short CBC 11/10/16 Range/Units 04:14 WBC 9.1 (4.3-11.1) K/mcL Hgb 10.3 L (11.5-15.4) g/dL Hct 33.0 L (35.3-44.9) % Plt Count 278 (140-400) K/mcL Neutrophils # 6.6 (1.6-8.9) K/mcL BMP 11/10/16 04:14 Sodium 144 Potassium 2.6 L Chloride 107 Carbon Dioxide 30 H BUN 6 L Creatinine 0.63 Glucose 89 Calcium 7.9 L Liver Function 11/10/16 Range/Units 04:14 Total Bilirubin 0.9 (0.2-1.2) mg/dL AST 10 (5-34) Units/L ALT 9 (0-55) Units/L Alkaline Phosphatase 81 (38-126) Units/L Albumin 1.8 L (3.5-5.0) g/dL - ABG Interpretation ABG results: ABG ABG pH 7.27 pH Units (7.32-7.45) L 11/07/16 02:18 ABG pCO2 56 mmHg (35-45) H 11/07/16 02:18 ABG pO2 89 mmHg (85-104) 11/07/16 02:18 ABG O2 Saturation 96 % (95-98) 11/07/16 02:18 PT/INR, D-dimer PT 35.2 Seconds (9.4-12.1) H 11/10/16 04:14 - VTE Reasons for not Prescribing Prophylaxis: Not indicated-Anticoagulated or INR therapeutic Consult Discharge Plan - Plan Referrals: Patrice Soliz MD [Primary Care Provider] -
[2016-11-10] MEDS ORDERED: Potassium Chloride Elixir 20 MEQ/15 ML UDC PO ONE (16:37)
[2016-11-11] MEDS: Ciprofloxacin OPTH Soln 2.5 ML BOTTLE LEFT EYE SCH ×4 (00:16→12:47)
[2016-11-11] MEDS: Piperacillin/Tazobactam 3.375 GM in D5% in Water (Mini-Bag+) 100 ML IVPB SCH ×2 (01:18→08:24)
[2016-11-11 04:35] LABS: Basophils # 0.1 K/mcL (0.0-0.2); Basophils % 0.5 %; Eosinophils # 0.7 K/mcL (0.0-0.6); Eosinophils % 7.3 %; Hematocrit 33.4 % (35.3-44.9); Hemoglobin 10.1 g/dL (11.5-15.4); Immature Granulocytes % 0.5 % (0-4); Lymphocytes # 1.2 K/mcL (0.6-4.6); Lymphocytes % 12.9 %; Mean Corpuscular HGB Conc 30.2 g/dL (31.6-35.5); Mean Corpuscular Hemoglobin 26.4 pg (28.0-33.3); Mean Corpuscular Volume 87.4 fL (83.0-100.0); Mean Platelet Volume 12.1 fL (9.4-12.4); Monocytes # 0.8 K/mcL (0.0-1.3); Monocytes % 8.7 %; Neutrophils # 6.6 K/mcL (1.6-8.9); Platelet Count 302 K/mcL (140-400); Red Blood Count 3.82 M/mcL (3.82-4.97); Red Cell Distribution Width 16.8 % (11.5-14.5); Segmented Neutrophils % 70.1 %
[2016-11-11 04:47] LABS: INR 2.9; Prothrombin Time 31.8 Seconds (9.4-12.1)
[2016-11-11 04:55] LABS: Alanine Aminotransferase 7 Units/L (0-55); Albumin/Globulin Ratio 0.5 (1.1-2.2); Alkaline Phosphatase 76 Units/L (38-126); Aspartate Amino Transferase 9 Units/L (5-34); BUN/Creatinine Ratio 8 (6-26); Bilirubin,Total 0.6 mg/dL (0.2-1.2); Calcium 8.1 mg/dL (8.6-10.8); Carbon Dioxide 31 mEq/L (19-29); Chloride 108 mEq/L (98-109); Globulin 3.3 g/dL (2.4-3.5); Glucose 89 mg/dL (70-99); Osmolality,Calculated 295 (280-300); Potassium 3.5 mEq/L (3.5-4.5); Sodium 144 mEq/L (136-145); Total Protein 5.1 g/dL (6.0-8.3); eGFR For African Americans > 60 (> 60); eGFR For Non-African Americans > 60 (> 60)
[2016-11-11 04:58] LABS: Blood Urea Nitrogen 5 mg/dL (7-20)
[2016-11-11 04:59] LABS: Albumin 1.8 g/dL (3.5-5.0)
[2016-11-11 06:54] VITALS: BP 140/72
[2016-11-11] MEDS: dilTIAZem HCl 60 MG TABLET PO SCH ×2 (08:24→12:47)
[2016-11-11] MEDS: Aspirin 81 MG TAB.CHEW PO SCH (08:24)
[2016-11-11] MEDS: Multivit/Ca/Min/Fe/FA 1 TAB TABLET PO SCH (08:24)
--- NOTE | 2016-11-11 10:52 | Discharge Summary ---
Date of Encounter: 11/11/16 Time of Encounter: 10:49 - Discharge Diagnosis (1) Sepsis Priority: Primary Status: Acute Qualifiers: Sepsis type: Haemophilus influenzae Qualified Code(s): A41.3 - Sepsis due to Hemophilus influenzae (2) Pneumonia Priority: Primary Status: Acute Qualifiers: Pneumonia type: due to Haemophilus influenzae Laterality: right Lung location: middle lobe of lung Qualified Code(s): J14 - Pneumonia due to Hemophilus influenzae (3) Atrial fibrillation Priority: Secondary Status: Acute Qualifiers: Atrial fibrillation type: chronic Qualified Code(s): I48.2 - Chronic atrial fibrillation (4) Dysphagia as late effect of cerebrovascular accident (CVA) Priority: Secondary Status: Chronic (5) Coronavirus infection Priority: Secondary Status: Acute (6) DVT prophylaxis Priority: Secondary Status: Acute - Discharge Medications Prescriptions: Diltiazem HCl [Cardizem] 60 mg PO QID #120 tablet Home Medications: Aspirin 81 mg PO DAILY 03/31/15 [History] Metoprolol [Lopressor] 50 mg PO BID 03/31/15 [History] Multivitamin [Zoo Chews] 1 tab PO DAILY 03/31/15 [History] Atorvastatin Calcium [Lipitor] 10 mg PO DAILY 11/05/16 [History] Ondansetron HCl [Zofran] 4 mg PO Q6HR 11/05/16 [History] Potassium Chloride [Klor-Con 10] 40 meq PO DAILY 11/05/16 [History] Tramadol HCl [Ultram] 50 mg PO QID PRN 11/05/16 [History] Warfarin [Coumadin] 1.5 mg PO DAILY 11/07/16 [History] Diltiazem HCl [Cardizem] 60 mg PO QID #120 tablet 11/11/16 [Rx] Allergies/Adverse Reactions: Allergies No Known Allergies Allergy (Verified 11/05/16 02:26) Date of admission: 11/05/16 04:09 Primary care physician: Patrice Soliz MD Consults: 11/05/16 17:01 Consult to Nurse Navigator [CONS] Routine Comment: 11/07/16 02:51 Consult to Speech Therapy [CONS] Routine Comment: Evaluate, develop and implement POC Reason for Consult: Pt w/ dysphagia. Concern of aspiration pneumonia. Appreciate evaluation and recommendations. Call Completed: No 11/08/16 10:07 Consult to Invasive Line Access Team [CONS] Routine Reason for Consult: PT HAS A COMPROMISED EXTREMITY Line Type: EPIV PICC line indications: Limited vascular access Time Notified: 10:09 Call Completed: Yes 11/10/16 06:46 Consult to Assistant Track And Field Coach [CONS] Routine Reason for SW Consult: caregivers requesting hospital bed for patient and wanting to know if insurance will cover it Discharging clinician: Deangelo Jameson - Patient Status Disposition: Home, Self-Care Condition: Good Functional capacity at discharge: bed bound Overall status at discharge: patient is progressing back to baseline - Discharge Instructions Follow Up With: Patrice Soliz MD [Primary Care Provider] - - Diet and Activity Activity: as per physical therapy, increase activity as tolerated Diet: low fat, low cholesterol, low salt diet Interval History: Ms. Pinzon is a 81 year old female with h/o CVA with left sided hemineglect, dysphagia; atrial fibrillation on anticoagulation with Warfarin. She presented to the ER at [facility], with 2 day history of congestion and cough, shortness of breath and Fever at home 102 degrees. She reports some cough, but no significant expectoration. She denies facial / sinus pain, exposure to sick contacts, chest pain, abdominal pain, dysphagia, hematuria, nausea, vomiting. No vomiting or diarrhea. No chest pain. While in the emergency department, she was noted to be in atrial flutter/ fibrillation with RVR and heart rate of 150s. Her serum lactate was 3. She was given IV fluids, started on diltiazem bolus and infusion. She continued to be tachycardic but was hypotensive - hence she was given IV digoxin. Her heart rate improved. Influenza screen was negative. Chest x-ray reported no acute consolidation. He had physician emperically treated her with ceftriaxone and azithromycin. She is admitted to the hospitalist service for further w/u and management. Hospital course: Patient was hospitalized. Patient was started on treatment for community- acquired pneumonia. Noted that patient was positive for H. influenzae.She was started on antiviral treatment. Patient responded well to the treatment. Noted that patient had an issue with the hypokalemia. Patient's magnesium was marginally low. Her magnesium was replaced. Patient's potassium is now 3.5. Patient completed 5 days of antibiotics/antiviral treatment. plan Patient has a 24-hour caregiver. She can go back home today. Patient was treated Cardizem 240 mg through PEG, in view of this is the extended release tablet I changed her to 60 mg 4 times a day. This 60 mg Cardizem tablet can be crushed and can be given through PEG. All questions answered at the time of discharge. Patient does not have any questions, concerns, updated of recommendation at the time of discharge. Patient should follow with her primary care provider. - Time Spent with Patient Total time spent providing and/or coordinating discharge services: - Constitutional Vitals: Temp Pulse Resp BP Pulse Ox 98.2 F 65 16 140/72 97 11/11/16 06:51 11/11/16 06:51 11/11/16 06:51 11/11/16 06:51 11/11/16 06:51 General appearance: Present: cachectic, pleasant, answers questions appropriately - Head Head exam: Present: atraumatic, normocephalic - Eye Eye exam: Present: PERRL, conjuntiva pink, sclera anicteric Pupils: Present: PERRL - Neck Neck exam general surgery: Present: supple, trachea midline. Absent: lymphadenopathy - Respiratory Respiratory exam: Present: CTAB. Absent: accessory muscle use, rales, rhonchi, wheezes - Cardiovascular Cardiovascular exam: Present: RRR, +S1, +S2. Absent: diastolic murmur, gallop, rubs, systolic murmur - GI/Abdominal GI/Abdominal exam: Present: normal bowel sounds, soft, no peritoneal signs. Absent: distended, tenderness - Extremities Exam Extremities exam: Present: warm, radial pulses palpable and symetrical. Absent : calf tenderness, cyanotic, pedal edema - Neurological Exam Neurological exam: Present: CN II-XII intact, oriented X3, no focal deficits. Absent: pronater drift, facial droop, speech deficit - Skin Skin exam: Present: dry, intact - VTE Reasons for not Prescribing Prophylaxis: Not indicated-Anticoagulated or INR therapeutic
--- NOTE | 2016-11-11 11:08 | Physician Discharge Referral ---
- Diagnosis (1) Sepsis Priority: Primary Status: Acute (2) Pneumonia Priority: Primary Status: Acute (3) Atrial fibrillation Priority: Secondary Status: Acute (4) Dysphagia as late effect of cerebrovascular accident (CVA) Priority: Secondary Status: Chronic (5) Coronavirus infection Priority: Secondary Status: Acute (6) DVT prophylaxis Priority: Secondary Status: Acute - Respiratory Orders Smoking Cessation: Smoking cessation has been advised. For more information, call the [place] Tobacco Quit Line at 0-956-RYWH-NOW. - Services Needed Following services are medically necessary services: Physical Therapy, Occupational Therapy, Speech Therapy - Transfer Medications Prescriptions: Diltiazem HCl [Cardizem] 60 mg PO QID #120 tablet Home Medications: Aspirin 81 mg PO DAILY 03/31/15 [History] Metoprolol [Lopressor] 50 mg PO BID 03/31/15 [History] Multivitamin [Zoo Chews] 1 tab PO DAILY 03/31/15 [History] Atorvastatin Calcium [Lipitor] 10 mg PO DAILY 11/05/16 [History] Ondansetron HCl [Zofran] 4 mg PO Q6HR 11/05/16 [History] Potassium Chloride [Klor-Con 10] 40 meq PO DAILY 11/05/16 [History] Tramadol HCl [Ultram] 50 mg PO QID PRN 11/05/16 [History] Warfarin [Coumadin] 1.5 mg PO DAILY 11/07/16 [History] Diltiazem HCl [Cardizem] 60 mg PO QID #120 tablet 11/11/16 [Rx] Allergies/Adverse Reactions: Allergies No Known Allergies Allergy (Verified 11/05/16 02:26) Certification: Further, I certify that my clinical findings support that this patient is homebound (i.e. absences from home require considerable and taxing effort and are for medical reasons or temple services or infrequently or short duration when for other reasons) because: Homebound Reason: Patient requires assistance of a person or device to safely leave home Attestation: My signature below is to certify that this patient is under my care and that I, or nurse practitioner, or a physician's community assistant working with me, has a face-to -face encounter with this patient.
[2016-11-11] MEDS ORDERED: *HR* Warfarin 1 MG TABLET PO ONE (18:00)
== END 2016-11-11 16:00 | disposition home or self-care (01) | DRG 871 ==
LOC: SUATTDRO 04:09 → 2NENU 04:09
PROVIDERS: ADMIT Internal Medicine; ATTEND Internal Medicine